=== PATIENT | female | born 1945 | race Caucasian/White ===

== ENCOUNTER 2020-09-23 18:07 | Inpatient (IN) ==
[2020-09-23] MEDS ORDERED: *HR* OxyCODONE/APAP 5/325 TABLET PO ONE (19:36)
[2020-09-23 21:20] LABS: Basophils % 0.5 %; Eosinophils # 0.2 K/mcL (0.0-0.6); Eosinophils % 2.7 %; Hemoglobin 8.2 g/dL (11.5-15.4); Immature Granulocytes % 0.4 % (0-4); Lymphocytes % 13.7 %; Mean Corpuscular HGB Conc 29.3 g/dL (31.6-35.5); Mean Corpuscular Hemoglobin 27.2 pg (28.0-33.3); Mean Corpuscular Volume 92.7 fL (83.0-100.0); Mean Platelet Volume 10.2 fL (9.4-12.4); Monocytes # 0.6 K/mcL (0.0-1.3); Monocytes % 8.6 %; Neutrophils # 5.4 K/mcL (1.6-8.9); Platelet Count 162 K/mcL (140-400); Red Blood Count 3.02 M/mcL (3.82-4.97); Red Cell Distribution Width 15.9 % (11.5-14.5); Segmented Neutrophils % 74.1 %; White Blood Count 7.3 K/mcL (4.3-11.1)
[2020-09-23] MEDS ORDERED: Gabapentin 300 MG CAPSULE PO ONE (21:31)
[2020-09-23 21:43] LABS: Calcium 9.1 mg/dL (8.6-10.3); INR 4.7; Potassium 4.4 mEq/L (3.5-5.1); Prothrombin Time 52.4 Seconds (9.4-12.1)
[2020-09-23] MEDS ORDERED: Naloxone 0.4 MG/ML INJ IVP PRN (22:41)
[2020-09-23] MEDS ORDERED: Ondansetron ODT 4 MG TAB.RAPDIS SL PRN (22:41)
[2020-09-23] MEDS ORDERED: Dextrose Gel 15 GM/37.5 ML TUBE PO PRN ×2 (23:06)
[2020-09-23] MEDS ORDERED: D5% in Water 1,000 ML IVC PRN (23:06)
[2020-09-23] MEDS ORDERED: *HR* Dextrose 50 % in Water (Vial) 50 ML VIAL IVP PRN (23:06)
[2020-09-23] MEDS: Insulin LISPRO 300 UNITS/3 ML VIAL SUBQ SCH (23:55)
[2020-09-24 01:03] LABS: Basophils % 0.6 %; Eosinophils # 0.3 K/mcL (0.0-0.6); Eosinophils % 3.8 %; Hematocrit 26.1 % (35.3-44.9); Hemoglobin 7.6 g/dL (11.5-15.4); Immature Granulocytes % 0.4 % (0-4); Lymphocytes # 1.2 K/mcL (0.6-4.6); Lymphocytes % 17.1 %; Mean Corpuscular HGB Conc 29.1 g/dL (31.6-35.5); Mean Corpuscular Hemoglobin 26.3 pg (28.0-33.3); Mean Corpuscular Volume 90.3 fL (83.0-100.0); Mean Platelet Volume 9.7 fL (9.4-12.4); Monocytes # 0.7 K/mcL (0.0-1.3); Monocytes % 10.3 %; Neutrophils # 4.6 K/mcL (1.6-8.9); Platelet Count 174 K/mcL (140-400); Red Blood Count 2.89 M/mcL (3.82-4.97); Red Cell Distribution Width 15.8 % (11.5-14.5); Segmented Neutrophils % 67.8 %; White Blood Count 6.8 K/mcL (4.3-11.1)
[2020-09-24 01:07] LABS: INR 4.1
[2020-09-24 01:16] LABS: Prothrombin Time 45.6 Seconds (9.4-12.1)
[2020-09-24 01:19] LABS: Albumin 3.6 g/dL (3.5-5.7); Albumin/Globulin Ratio 1.2 (1.1-2.2); Bilirubin,Total 0.6 mg/dL (0.3-1.0); Calcium 8.9 mg/dL (8.6-10.3); Potassium 4.2 mEq/L (3.5-5.1); Total Protein 6.6 g/dL (6.4-8.9)
[2020-09-24 01:28] LABS: Thyroid Stimulating Hormone 2.518 mcIU/mL (0.340-5.600)
[2020-09-24 01:36] LABS: Hypochromasia Present (Not Present); Platelet Estimate Normal (Normal)
[2020-09-24 02:12] LABS: Estimated Average Glucose 85 mg/dl; Hemoglobin A1C 4.6 %
[2020-09-24 03:01] LABS: Folate 8.7 ng/mL (3.0-16.0)
[2020-09-24] MEDS: *HR* OxyCODONE Immed Rel 5 MG TABLET PO PRN (05:53)
[2020-09-24] MEDS: Levothyroxine 25 MCG TABLET PO SCH (05:53)
[2020-09-24] MEDS ORDERED: Iron Sucrose Complex 400 MG in 0.9 % Sodium Chloride 250 ML IVPB ONE (09:12)
[2020-09-24] MEDS ORDERED: Perflutren Lipid Microsphere 1.3 ML in 0.9 % Sodium Chloride 8.7 ML IVP PRN (09:15)
[2020-09-24] MEDS: BuPROPion SR (12 HR) 150 MG TABLET PO SCH (09:22)
[2020-09-24] MEDS: Nystatin POWDER 30 GM BOTTLE TP SCH ×3 (09:24→20:02)
[2020-09-24] MEDS: Insulin LISPRO 300 UNITS/3 ML VIAL SUBQ SCH ×4 (09:40→20:02)
[2020-09-24] MEDS: Furosemide 40 MG/4 ML VIAL IVP SCH ×2 (09:50→20:05)
[2020-09-24] MEDS: Gabapentin 300 MG CAPSULE PO SCH (12:05)
[2020-09-24] MEDS: Acetaminophen 325 MG TABLET PO PRN (20:01)
[2020-09-24] MEDS: rOPINIRole 0.25 MG TABLET PO SCH (20:02)
[2020-09-25 01:14] LABS: INR 2.3; Prothrombin Time 25.8 Seconds (9.4-12.1)
[2020-09-25] MEDS: Levothyroxine 25 MCG TABLET PO SCH (05:15)
[2020-09-25] MEDS: *HR* OxyCODONE Immed Rel 5 MG TABLET PO PRN (07:38)
[2020-09-25] MEDS: Insulin LISPRO 300 UNITS/3 ML VIAL SUBQ SCH ×4 (09:04→21:28)
[2020-09-25] MEDS: BuPROPion SR (12 HR) 150 MG TABLET PO SCH (09:16)
[2020-09-25] MEDS: Furosemide 40 MG/4 ML VIAL IVP SCH ×2 (09:16→21:28)
[2020-09-25] MEDS: Acetaminophen 325 MG TABLET PO PRN (09:16)
[2020-09-25] MEDS: Iron Sucrose Complex 250 MG in 0.9 % Sodium Chloride 250 ML IVPB SCH (09:17)
[2020-09-25] MEDS: Nystatin POWDER 30 GM BOTTLE TP SCH ×3 (09:17→21:28)
[2020-09-25] MEDS: Gabapentin 300 MG CAPSULE PO SCH (12:06)
[2020-09-25 18:41] LABS: Amorphous Sediment,Urine Few per hpf (None-Few); Bacteria,Urine Moderate per hpf (None-Few); Bilirubin,Urine Negative (Negative); Blood,Urine Large (Negative); Clarity,Urine Ex.Turbid (Clear); Color,Urine Light-Orange (Yellow); Glucose,Urine (UA) Normal (Normal); Ketones,Urine Negative (Negative); Leukocyte Esterase,Urine Large (Negative); Mucus,Urine Few per lpf (None-Few); Nitrite,Urine Negative (Negative); PH,Urine 6.5 pH Units (5.0-8.0); Protein,Urine 70 mg/dL (Neg-Trace); RBC,Urine TNTC per hpf (0-3); Specific Gravity,Urine 1.013 (1.010-1.025); Squamous Epithelial Cell,Urine Few per hpf (None-Few); Urobilinogen,Urine Normal (Normal); WBC,Urine TNTC per hpf (0-3)
[2020-09-25] MEDS: *HR* OxyCODONE/APAP 7.5/325 TABLET PO PRN (19:19)
[2020-09-25] MEDS: rOPINIRole 0.25 MG TABLET PO SCH (21:28)
[2020-09-26] MEDS: *HR* OxyCODONE/APAP 7.5/325 TABLET PO PRN ×2 (05:10→17:34)
[2020-09-26] MEDS: Levothyroxine 25 MCG TABLET PO SCH (06:10)
[2020-09-26] MEDS: Insulin LISPRO 300 UNITS/3 ML VIAL SUBQ SCH ×3 (07:47→17:33)
[2020-09-26] MEDS: Furosemide 40 MG/4 ML VIAL IVP SCH (11:41)
[2020-09-26] MEDS: BuPROPion SR (12 HR) 150 MG TABLET PO SCH (11:42)
[2020-09-26] MEDS: Gabapentin 300 MG CAPSULE PO SCH (11:48)
[2020-09-26 15:35] VITALS: BP 134/73
[2020-09-26] MEDS: Iron Sucrose Complex 250 MG in 0.9 % Sodium Chloride 250 ML IVPB SCH (17:33)
[2020-09-26] MEDS: Nystatin POWDER 30 GM BOTTLE TP SCH (17:35)
== END 2020-09-26 18:05 | DRG 563 ==
LOC: 3NENU 18:07 → EMEROOARM 18:07 → SUATTDRO 22:09 → 3NENU 23:43 → SUATTDRO 09-25 14:16
PROVIDERS: ADMIT Internal Medicine; ATTEND Internal Medicine

== ENCOUNTER 2020-10-31 23:48 | Inpatient (IN) ==
[2020-11-01 00:58] LABS: Basophils % 0.8 %; Eosinophils # 0.2 K/mcL (0.0-0.6); Eosinophils % 4.1 %; Hematocrit 27.7 % (35.3-44.9); Hemoglobin 8.1 g/dL (11.5-15.4); Immature Granulocytes % 0.3 % (0-4); Lymphocytes # 1.2 K/mcL (0.6-4.6); Lymphocytes % 31.4 %; Mean Corpuscular HGB Conc 29.2 g/dL (31.6-35.5); Mean Corpuscular Hemoglobin 26.9 pg (28.0-33.3); Mean Platelet Volume 9.1 fL (9.4-12.4); Monocytes # 0.5 K/mcL (0.0-1.3); Monocytes % 11.7 %; Platelet Count 126 K/mcL (140-400); Red Blood Count 3.01 M/mcL (3.82-4.97); Red Cell Distribution Width 21.9 % (11.5-14.5); Segmented Neutrophils % 51.7 %; White Blood Count 3.9 K/mcL (4.3-11.1)
[2020-11-01 01:03] LABS: INR 2.3; Prothrombin Time 25.5 Seconds (9.4-12.1)
[2020-11-01 01:17] LABS: Alanine Aminotransferase 6 Units/L (7-52); Albumin 3.4 g/dL (3.5-5.7); Albumin/Globulin Ratio 1.1 (1.1-2.2); Alkaline Phosphatase 120 Units/L (34-104); Aspartate Amino Transferase 18 Units/L (13-39); BUN/Creatinine Ratio 17 (6-26); Bilirubin,Direct 0.3 mg/dL (0.0-0.2); Bilirubin,Indirect 0.5 mg/dL (0.0-1.0); Bilirubin,Total 0.8 mg/dL (0.3-1.0); Blood Urea Nitrogen 15 mg/dL (8-23); Calcium 8.5 mg/dL (8.6-10.3); Carbon Dioxide 25 mEq/L (23-29); Chloride 106 mEq/L (98-107); Glucose 99 mg/dL (70-105); Osmolality,Calculated 291 (280-300); Potassium 3.4 mEq/L (3.5-5.1); Sodium 140 mEq/L (136-145); Total Protein 6.4 g/dL (6.4-8.9); eGFR For African Americans > 60 (> 60); eGFR For Non-African Americans > 60 (> 60)
[2020-11-01 02:16] LABS: Bacteria,Urine Few per hpf (None-Few); Bilirubin,Urine Negative (Negative); Blood,Urine Small (Negative); Clarity,Urine Turbid (Clear); Color,Urine Yellow (Yellow); Glucose,Urine (UA) Normal (Normal); Ketones,Urine Negative (Negative); Leukocyte Esterase,Urine Large (Negative); Mucus,Urine Few per lpf (None-Few); Nitrite,Urine Negative (Negative); Protein,Urine 30 mg/dL (Neg-Trace); Specific Gravity,Urine 1.017 (1.010-1.025); Squamous Epithelial Cell,Urine Few per hpf (None-Few); Urobilinogen,Urine Normal (Normal); WBC,Urine TNTC per hpf (0-3)
[2020-11-01] MEDS ORDERED: cefTRIAXone 1,000 MG in 0.9 % Sodium Chloride Mini Bag 100 ML IVPB ONE (02:26)
[2020-11-01] MEDS ORDERED: Morphine Sulfate 2 MG/ML SYRINGE IVP ONE (02:30)
[2020-11-01] MEDS ORDERED: Ondansetron 4 MG/2 ML VIAL IVP PRN (03:25)
[2020-11-01] MEDS ORDERED: Naloxone 0.4 MG/ML INJ IVP PRN (03:25)
[2020-11-01] MEDS ORDERED: Ipratropium/Albuterol Neb 3 ML IH PRN (04:00)
[2020-11-01] MEDS: Acetaminophen 325 MG TABLET PO PRN (04:58)
[2020-11-01] MEDS: Gabapentin 300 MG CAPSULE PO SCH ×2 (11:00→19:46)
[2020-11-01] MEDS: *HR* HYDROcodone/Acet 5/325 mg TABLET PO PRN ×2 (11:38→19:45)
[2020-11-01] MEDS ORDERED: Warfarin perPT PO PRN (18:00)
[2020-11-01] MEDS ORDERED: *HR* Warfarin 3 MG TABLET PO ONE (18:00)
[2020-11-01] MEDS: Furosemide 40 MG TABLET PO SCH (18:13)
[2020-11-01] MEDS: cefTRIAXone 1,000 MG in 0.9 % Sodium Chloride Mini Bag 100 ML IVPB SCH (18:13)
[2020-11-01] MEDS: Sennosides 8.6 MG TABLET PO SCH (19:46)
[2020-11-01] MEDS: rOPINIRole 0.25 MG TABLET PO SCH (19:47)
[2020-11-02] MEDS: Levothyroxine 25 MCG TABLET PO SCH (05:13)
[2020-11-02 07:23] LABS: Basophils % 0.5 %; Eosinophils # 0.3 K/mcL (0.0-0.6); Eosinophils % 8.8 %; Hematocrit 29.3 % (35.3-44.9); Hemoglobin 8.5 g/dL (11.5-15.4); Immature Granulocytes % 0.3 % (0-4); Lymphocytes # 1.1 K/mcL (0.6-4.6); Lymphocytes % 30.4 %; Mean Corpuscular Hemoglobin 27.3 pg (28.0-33.3); Mean Corpuscular Volume 94.2 fL (83.0-100.0); Mean Platelet Volume 9.3 fL (9.4-12.4); Monocytes # 0.4 K/mcL (0.0-1.3); Monocytes % 10.7 %; Neutrophils # 1.8 K/mcL (1.6-8.9); Platelet Count 116 K/mcL (140-400); Red Blood Count 3.11 M/mcL (3.82-4.97); Red Cell Distribution Width 22.5 % (11.5-14.5); Segmented Neutrophils % 49.3 %; White Blood Count 3.7 K/mcL (4.3-11.1)
[2020-11-02 07:31] LABS: INR 2.2; Prothrombin Time 24.5 Seconds (9.4-12.1)
[2020-11-02 07:39] LABS: Platelet Estimate Slight Decrease (Normal); Reactive Lymphocytes Present (Not Present)
[2020-11-02 07:43] LABS: BUN/Creatinine Ratio 13 (6-26); Blood Urea Nitrogen 12 mg/dL (8-23); Calcium 8.7 mg/dL (8.6-10.3); Carbon Dioxide 26 mEq/L (23-29); Chloride 106 mEq/L (98-107); Glucose 88 mg/dL (70-105); Osmolality,Calculated 287 (280-300); Potassium 3.9 mEq/L (3.5-5.1); Sodium 139 mEq/L (136-145); eGFR For African Americans > 60 (> 60); eGFR For Non-African Americans 59 (> 60)
[2020-11-02 08:34] LABS: Thyroid Stimulating Hormone 5.223 mcIU/mL (0.340-5.600)
[2020-11-02] MEDS: BuPROPion SR (12 HR) 150 MG TABLET PO SCH (08:43)
[2020-11-02] MEDS: Gabapentin 300 MG CAPSULE PO SCH ×2 (08:43→22:12)
[2020-11-02] MEDS: Furosemide 40 MG TABLET PO SCH ×2 (08:44→17:07)
[2020-11-02] MEDS: *HR* HYDROcodone/Acet 5/325 mg TABLET PO PRN ×2 (08:44→17:43)
[2020-11-02] MEDS: Insulin LISPRO 300 UNITS/3 ML VIAL SUBQ SCH ×3 (12:55→22:12)
[2020-11-02] MEDS: Acetaminophen 325 MG TABLET PO PRN (14:19)
[2020-11-02] MEDS: cefTRIAXone 1,000 MG in 0.9 % Sodium Chloride Mini Bag 100 ML IVPB SCH (17:06)
[2020-11-02] MEDS ORDERED: *HR* Warfarin 3 MG TABLET PO ONE (18:30)
[2020-11-02] MEDS: rOPINIRole 0.25 MG TABLET PO SCH (22:11)
[2020-11-02] MEDS: Sennosides 8.6 MG TABLET PO SCH (22:12)
[2020-11-03] MEDS: Levothyroxine 25 MCG TABLET PO SCH (05:22)
[2020-11-03] MEDS: Insulin LISPRO 300 UNITS/3 ML VIAL SUBQ SCH ×4 (07:15→20:30)
[2020-11-03] MEDS: BuPROPion SR (12 HR) 150 MG TABLET PO SCH (08:45)
[2020-11-03] MEDS: Gabapentin 300 MG CAPSULE PO SCH ×2 (08:45→20:33)
[2020-11-03] MEDS: Furosemide 40 MG TABLET PO SCH ×2 (08:46→17:10)
[2020-11-03 10:03] LABS: INR 2.7; Prothrombin Time 30.4 Seconds (9.4-12.1)
[2020-11-03] MEDS: *HR* HYDROcodone/Acet 5/325 mg TABLET PO PRN ×2 (12:05→20:32)
[2020-11-03] MEDS ORDERED: *HR* Warfarin 2 MG TABLET PO ONE (18:00)
[2020-11-03] MEDS: Cefdinir 300 MG CAPSULE PO SCH (20:33)
[2020-11-03] MEDS: rOPINIRole 0.25 MG TABLET PO SCH (20:33)
[2020-11-03] MEDS: Sennosides 8.6 MG TABLET PO SCH (20:33)
[2020-11-04 03:34] LABS: INR 2.4; Prothrombin Time 27.5 Seconds (9.4-12.1)
[2020-11-04] MEDS: Levothyroxine 25 MCG TABLET PO SCH (05:42)
[2020-11-04] MEDS: *HR* HYDROcodone/Acet 5/325 mg TABLET PO PRN ×2 (05:42→14:02)
[2020-11-04] MEDS: Gabapentin 300 MG CAPSULE PO SCH (09:39)
[2020-11-04] MEDS: Cefdinir 300 MG CAPSULE PO SCH (09:39)
[2020-11-04] MEDS: BuPROPion SR (12 HR) 150 MG TABLET PO SCH (09:40)
[2020-11-04] MEDS: Furosemide 40 MG TABLET PO SCH (09:42)
[2020-11-04] MEDS: Insulin LISPRO 300 UNITS/3 ML VIAL SUBQ SCH ×2 (09:44→12:47)
[2020-11-04 10:51] VITALS: BP 130/73
[2020-11-04] MEDS ORDERED: *HR* Warfarin 3 MG TABLET PO ONE (18:00)
== END 2020-11-04 16:27 | DRG 689 ==
LOC: CDU 23:48 → EMEROOARM 23:48 → SUATTDRO 11-01 03:20 → CDU 11-01 03:54 → 3ANU 11-01 18:47
PROVIDERS: ADMIT Student in an Organized Health Care Education/Training Program; ATTEND Student in an Organized Health Care Education/Training Program